=== PATIENT | male | born 1945 | race Caucasian/White ===

== ENCOUNTER 2018-05-28 11:30 | Emergency (ER) | payer SELFPAY ==
[2018-05-28 11:53] VITALS: RESP 20
[2018-05-28] MEDS: Sodium Chloride 0.9% 1,000 ML IV ONE (13:00)
--- NOTE | 2018-05-28 13:12 | RAD ---
Date of service: 05/28/2018 PROCEDURE: CHEST RADIOGRAPH, 1 VIEW HISTORY: Diabetic COMPARISON: None available. FINDINGS: LUNGS: Clear. PLEURA: No pneumothorax or pleural fluid seen. CARDIOVASCULAR: Normal. OSSEOUS STRUCTURES: No significant abnormalities. VISUALIZED UPPER ABDOMEN: Normal. OTHER FINDINGS: None. IMPRESSION: No active disease.
[2018-05-28] MEDS: (Novolin R) Insulin Human Regular 100 units/ml vial IV STA (13:31)
[2018-05-28] MEDS ORDERED: (Novolin R) Insulin Human Regular 100 units/ml vial ONE (13:31)
[2018-05-28 13:36] LABS: BASO # 0.1 K/uL (0.0-0.2); BASO % 0.9 % (0.0-2.0); EOS # 0.2 K/uL (0.0-0.7); EOS % 2.5 % (0.0-4.0); HEMOGLOBIN 14.8 g/dL (12.0-18.0); LYMPH # 1.5 K/uL (1.0-4.3); LYMPH % 22.5 % (20.0-40.0); MEAN CELL VOLUME 87.4 fL (80.0-94.0); MEAN CORPUSCULAR HEMOGLOBIN 29.7 pg (27.0-31.0); MEAN CORPUSCULAR HGB CONC 33.9 g/dL (33.0-37.0); MEAN PLATELET VOLUME 7.8 fL (7.2-11.7); MONO # 0.7 K/uL (0.0-0.8); MONO % 10.6 % (0.0-10.0); NEUT # 4.2 K/uL (1.8-7.0); NEUT % 63.5 % (50.0-75.0); NRBC % 0.1 % (0.0-2.0); RED CELL DISTRIBUTION WIDTH 14.4 % (11.5-14.5); WHITE BLOOD COUNT 6.5 K/uL (4.8-10.8)
[2018-05-28 14:11] LABS: ALB/GLOB RATIO 1.2 (1.0-2.1); ALBUMIN 3.8 g/dL (3.5-5.0); ALT/SGPT 28 U/L (21-72); AST/SGOT 25 U/L (17-59); BLOOD UREA NITROGEN 15 mg/dL (9-20); CALCIUM 8.6 mg/dl (8.6-10.4); GFR AFRICAN-AMERICAN > 60; GFR NON-AFRICAN AMERICAN > 60
[2018-05-28] MEDS ORDERED: (Novolin R) Insulin Human Regular 100 units/ml vial IV STA (14:11)
--- NOTE | 2018-05-28 14:25 | C.PDOC ---
History Of Present Illness 73 y/o male with PMHx of uncontrolled diabetes presents to the ED with complaints of polydipsia and polyuria for the past few weeks. Patient immigrated from [place] 10 days ago. He reports being off medications for the last 2-3 months. States he has lancets and finger stick machine at home. Otherwise he denies any chest pain, SOB, weakness, dizziness, nausea, vomiting, or other complaints. Time Seen by Provider: 05/28/18 12:39 Chief Complaint (Nursing): High Blood Sugar History Per: Patient History/Exam Limitations: no limitations Onset/Duration Of Symptoms: Days Current Symptoms Are (Timing): Still Present Causative (Exacerbating) Factor(s): Missed Taking Medication Associated Infectious Symptoms: Urinary Frequency Past Medical History Reviewed: Historical Data, Nursing Documentation, Vital Signs Vital Signs: Last Vital Signs Temp 98.1 F 05/28/18 14:38 Pulse 60 05/28/18 14:38 Resp 20 05/28/18 14:38 BP 136/71 05/28/18 14:38 Pulse Ox 96 05/28/18 15:15 - Medical History PMH: Diabetes Family History: States: No Known Family Hx - Social History Hx Alcohol Use: No Hx Substance Use: No - Immunization History Hx Tetanus Toxoid Vaccination: Yes Hx Influenza Vaccination: Yes Hx Pneumococcal Vaccination: Yes Review Of Systems Except As Marked, All Systems Reviewed And Found Negative. Constitutional: Positive for: Other (Polydipsia) Eyes: Negative for: Vision Change Cardiovascular: Negative for: Chest Pain Respiratory: Negative for: Shortness of Breath Gastrointestinal: Negative for: Nausea, Vomiting Genitourinary: Positive for: Other (Polyuria). Negative for: Dysuria, Hematuria Neurological: Negative for: Weakness, Numbness, Incoordination, Change in Speech , Dizziness Physical Exam - Physical Exam Appears: Non-toxic, No Acute Distress Skin: Normal Color, Warm Head: Atraumatic, Normacephalic Eye(s): bilateral: Normal Inspection Oral Mucosa: Dry Neck: Normal ROM Chest: Symmetrical Cardiovascular: Rhythm Regular, No Murmur Respiratory: Normal Breath Sounds, No Rales, No Rhonchi, No Wheezing Gastrointestinal/Abdominal: Soft, No Tenderness, No Distention Extremity: Bilateral: Atraumatic, Normal Color And Temperature, Normal ROM Pulses: Left Dorsalis Pedis: Normal, Right Dorsalis Pedis: Normal Neurological/Psych: Oriented x3, Normal Speech, Other (No focal deficits) ED Course And Treatment - Laboratory Results Result Diagrams: 05/28/18 13:27 05/28/18 13:27 Lab Interpretation: Abnormal (A1C 15 H) ECG: Interpreted By Me ECG Rhythm: Sinus Rhythm ECG Interpretation: Normal Rate From EC O2 Sat by Pulse Oximetry: 96 (RA) Pulse Ox Interpretation: Normal - Radiology CXR: Interpreted by Me CXR Interpretation: Yes: No Acute Disease Progress Note: Insulin IV, IVF Reevaluation Time: 14:25 Reassessment Condition: Improved Medical Decision Making Medical Decision Making: Impression: Uncontrolled diabetes Initial Plan: --EKG --CMP --CBC --Hb A1c --UA --Chest X-ray --Accucheck --IV fluids and insulin Disposition Doctor Will See Patient In The: Office Counseled Patient/Family Regarding: Studies Performed, Diagnosis - Disposition Referrals: [facility] [Outside] [facility] [Outside] [facility] [Outside] Disposition: HOME/ ROUTINE Disposition Time: 14:26 Condition: GOOD Additional Instructions: Sigue Metformina 1000 mg dos veces al pam- con Desayuno y Roly Mide bello azucar en la manana y en la noche ANTES del Desayuno y Roly Apunta los numeros en el librito con la machina. Lleva la machina y bello librito en prashant proximas visitas en la [facility] Sigue en la [facility]- en 1-2 meces Llama para hacer kinza Prescriptions: Blood-Glucose Control, Normal [Meter-Check] 1 each MC DAILY #1 each Lancets/Blood Glucose Strips [Fora [id number] Strp-Lnct] 1 each MC BID #60 combo..pkg MetFORMIN [glucoPHAGE] 1,000 mg PO BID #60 tab Instructions: Hyperglycemia, Adult (DC), The ABCs of Diabetes, Diabetes and Diet Forms: [facility] (Romanian) Print Language: MAORI - POA Present On Arrival: Poor Glycemic Control - Clinical Impression Clinical Impression: Hyperglycemia - Scribe Statement The provider has reviewed the documentation as recorded by the Scribe (Dary Rosales) Provider Attestation: All medical record entries made by the Scribe were at my direction and personally dictated by me. I have reviewed the chart and agree that the record accurately reflects my personal performance of the history, physical exam, medical decision making, and the department course for this patient. I have also personally directed, reviewed, and agree with the discharge instructions and disposition.
[2018-05-28 14:35] LABS: URINE BILIRUBIN NEGATIVE (NEGATIVE); URINE BLOOD NEGATIVE (NEGATIVE); URINE CLARITY Clear (Clear); URINE COLOR Yellow (YELLOW); URINE GLUCOSE (UA) 3+ mg/dL (Normal); URINE LEUKOCYTE ESTERASE NEG Leu/uL (Negative); URINE PROTEIN NEGATIVE (NEGATIVE); URINE UROBILINOGEN NORMAL mg/dL (0.2-1.0)
[2018-05-28 14:39] VITALS: BP 136/71; PULSE 60; TEMP 98.1
[2018-05-28 15:09] VITALS: O2SAT 96
--- NOTE | 2018-05-29 14:07 | CARD ---
APPROVED REPORT Date of service: 05/28/2018 EKG Measurement Heart [id number] <Conclusion> Sinus bradycardia Otherwise normal ECG
== END 2018-05-28 14:39 | disposition home or self-care (01) ==
LOC: C.ER 11:30
DX: E11.65 Type 2 diabetes mellitus with hyperglycemia (principal)
CPT/HCPCS: 71045; 80053; 81001; 82948; 83036; 85025; 93005; 96360; 99285; J7030

== ENCOUNTER 2018-11-30 09:41 | Emergency (ER) | payer SELFPAY ==
--- NOTE | 2018-11-30 11:40 | C.PDOC ---
History Of Present Illness 73 y/o male with a PMHx of diabetes, presents accompanied by daughter for evaluation of right lower leg pain. Patient arrived from [place] 1 week ago. Over the past 2-3 days he developed right lower extremity cramping intermittently. Denies associated trauma or fall. Otherwise he denies any chest pain, SOB, leg swelling, redness, or difficulty ambulating. Time Seen by Provider: 11/30/18 09:55 Chief Complaint (Nursing): Lower Extremity Problem/Injury History Per: Epilepsy Physician (Daughter at bedside translating in Malian for pt) History/Exam Limitations: no limitations Onset/Duration Of Symptoms: Days (x2) Current Symptoms Are (Timing): Still Present Past Medical History Reviewed: Historical Data, Nursing Documentation, Vital Signs Vital Signs: Last Vital Signs Temp 97.4 F L 11/30/18 09:44 Pulse 63 11/30/18 09:44 Resp 18 11/30/18 09:44 BP 122/79 11/30/18 09:44 Pulse Ox 98 11/30/18 09:44 - Medical History PMH: Diabetes Family History: States: No Known Family Hx - Social History Hx Alcohol Use: No Hx Substance Use: No - Immunization History Hx Tetanus Toxoid Vaccination: Yes Hx Influenza Vaccination: Yes Hx Pneumococcal Vaccination: Yes Review Of Systems Constitutional: Negative for: Fever, Chills Cardiovascular: Negative for: Chest Pain, Edema Respiratory: Negative for: Shortness of Breath Gastrointestinal: Negative for: Abdominal Pain Musculoskeletal: Positive for: Leg Pain Skin: Negative for: Rash Neurological: Negative for: Weakness, Numbness, Incoordination Physical Exam - Physical Exam Appears: Non-toxic, No Acute Distress Skin: Warm, Dry Head: Atraumatic, Normacephalic Eye(s): bilateral: Normal Inspection Neck: Normal ROM Chest: Symmetrical Respiratory: No Accessory Muscle Use, Other (Normal inspiratory effort) Extremity: Normal ROM (of bilateral lower extremities), No Tenderness, No Calf Tenderness, Capillary Refill (< 2 sec), No Swelling, Other (Right lower leg appears unremarkable) Pulses: Left Dorsalis Pedis: Normal, Right Dorsalis Pedis: Normal Neurological/Psych: Oriented x3, Normal Motor, Normal Sensation Gait: Steady ED Course And Treatment O2 Sat by Pulse Oximetry: 98 (RA) Pulse Ox Interpretation: Normal Medical Decision Making Medical Decision Making: Impression: Right lower leg pain, Hx of recent travel from [place] Plan: * Doppler US of RLE US is negative for DVT. Patient and daughter educating regarding results. BS FS is 225. Patient remains AAOx3, resting comfortably, in no acute distress. On further discussion, patient states he needs a refill for his Glyburide, as he is not returning to [place] until December. Patient will be discharged home with rx for Glyburide as requested. Advised to follow up with the clinic for further management. Disposition Counseled Patient/Family Regarding: Studies Performed, Diagnosis, Need For Followup - Disposition Referrals: [facility] [Outside] [facility] [Outside] Disposition: HOME/ ROUTINE Disposition Time: 11:39 Condition: STABLE Prescriptions: glyBURIDE [Micronase] 5 mg PO DAILY #30 tab Instructions: Hyperglycemia, Adult (DC), Leg Cramps (ED) Forms: Gen Discharge Inst Malian, [facility] (Malian) Print Language: SWEDISH - POA Present On Arrival: None - Clinical Impression Clinical Impression: Leg cramping, Medication refill, Hyperglycemia - Scribe Statement The provider has reviewed the documentation as recorded by the Christen Rosales Provider Attestation: All medical record entries made by the Christen were at my direction and personally dictated by me. I have reviewed the chart and agree that the record accurately reflects my personal performance of the history, physical exam, medical decision making, and the department course for this patient. I have also personally directed, reviewed, and agree with the discharge instructions and disposition.
[2018-11-30 12:12] VITALS: BP 128/79; PULSE 60; RESP 20; TEMP 97.8
--- NOTE | 2018-11-30 13:34 | VASCLAB ---
Date of service: 11/30/2018 PROCEDURE: Right Lower Extremity Venous Duplex Exam. HISTORY: pain PRIORS: None. TECHNIQUE: Right common femoral, femoral, popliteal and posterior tibial, peroneal and great saphenous veins were evaluated. Flow was assessed with color Doppler, compressibility, assessment of phasic flow and augmentation response. Report prepared by YULI Méndez, RVT FINDINGS: RIGHT: 1. Common Femoral Vein: 1.1. Compressibility - Fully compressible: Thrombus - None: Flow - Phasic: Augmentation -Normal: Reflux - None. 2. Femoral Vein: 2.1. Compressibility - Fully compressible: Thrombus - None: Flow - Phasic: Augmentation -Normal: Reflux - None. 3. Popliteal Vein: 3.1. Compressibility - Fully compressible: Thrombus - None: Flow - Phasic: Augmentation -Normal: Reflux - None. 4. Posterior Tibial Vein: 4.1. Compressibility - Fully compressible: Thrombus - None: Flow - Phasic: Augmentation -Normal: Reflux - None. 5. Peroneal Vein: 5.1. Compressibility - Fully compressible: Thrombus - None: Flow - Phasic: Augmentation -Normal: Reflux - None. 6. Great Saphenous Vein: 6.1. Compressibility - Fully compressible: Thrombus -None: Flow - Phasic: Augmentation - Normal: Reflux - None. OTHER FINDINGS: IMPRESSION: No evidence of deep or superficial vein thrombosis of the right lower extremity with excellent venous flow. Normal valve function noted of the right side. Normal venous flow noted in the left common femoral vein.
[2018-11-30 16:19] VITALS: O2SAT 98
== END 2018-11-30 12:15 | disposition home or self-care (01) ==
LOC: C.ER 09:41
DX: R25.2 Cramp and spasm (principal); Z76.0 Encounter for issue of repeat prescription; E11.65 Type 2 diabetes mellitus with hyperglycemia; Z79.84 Long term (current) use of oral hypoglycemic drugs